=== PATIENT | male | born 1950 | race Caucasian/White ===

== ENCOUNTER 2017-02-18 14:30 | Outpatient (CLI) | payer BC ==
--- NOTE | 2017-02-18 16:29 | XRAY Report ---
DATE OF SERVICE: 02/18/2017 TWO VIEW CHEST: 02/18/2017 CLINICAL INDICATION: Cough, fever, tobacco history. FINDINGS: Frontal and lateral views of the chest demonstrate a normal cardiac silhouette. The lungs are clear. No effusion or pneumothorax is present. Postoperative changes are noted in the lower cervical spine. IMPRESSION: NO EVIDENCE OF ACUTE CARDIOPULMONARY DISEASE. TD: 02/18/2017 17:28
== END 2017-02-18 14:31 | disposition home or self-care (01) ==
LOC: DI 14:30
PROVIDERS: ATTEND Physician Assistant
DX: R05 Cough (principal); Z87.891 Personal history of nicotine dependence
CPT/HCPCS: 71046

== ENCOUNTER 2018-02-17 10:09 | Outpatient (CLI) | payer BC ==
--- NOTE | 2018-02-17 16:16 | Ultrasound Report ---
Reason: ELEVATED LIVER ENZYMES Procedure Date: 02/17/2018 Accession Number: [id number] / [id number] Procedure: US - Abdomen Limited CPT Code: FULL RESULT: EXAM: FOCUSED RIGHT UPPER QUADRANT ULTRASOUND OF THE LIVER ONLY. EXAM DATE: 02/17/2018 11:48 AM. CLINICAL HISTORY: Elevated liver enzymes. COMPARISON: None. TECHNIQUE: Real-time scanning was performed with static images obtained. FINDINGS: Liver: There is increased parenchymal echogenicity and heterogeneity with focal sparing around the gallbladder fossa, consistent with steatosis with focal fatty sparing. Right lobe of the liver measures at least 18.5 cm. Main portal vein flow: Hepatopetal. Gallbladder: The visualized portions of the gallbladder appear unremarkable, no dedicated evaluation was performed. Biliary System: CBD measures 4 mm. No intrahepatic or extrahepatic ductal dilatation is seen. Other: None. IMPRESSION: Hepatic steatosis. RADIA
== END 2018-02-17 10:10 | disposition home or self-care (01) ==
LOC: DI 10:09
PROVIDERS: ATTEND Family Medicine
DX: K76.0 Fatty (change of) liver, not elsewhere classified (principal)
CPT/HCPCS: 76705

== ENCOUNTER 2021-04-23 12:39 | Outpatient (CLI) | payer BC ==
--- NOTE | 2021-04-23 17:36 | XRAY Report ---
PROCEDURE: Tib/Fib LT INDICATIONS: BLOW TO L LOWER LEG TECHNIQUE: 2 views of the tibia and fibula were acquired. COMPARISON: None FINDINGS: Bones: There is appearance of a distal fibular cortical irregularity at the level of the tibiotalar j oint space. However, this is not well seen on all views. In addition, small lucency is noted at the f ibular tip, again not well seen on all views. No suspicious bony lesions. Soft tissues: No suspicious soft tissue calcifications or masses. IMPRESSION: Questionable lateral malleoli or fracture, not well evaluated on current exam. Further evaluation wit h dedicated ankle views are recommended. Reviewed by: Kira Del Rosario MD on 04/23/2021 5:35 PM PDT Approved by: Kira Del Rosario MD on 04/23/2021 5:35 PM PDT Station ID: [id number]
== END 2021-04-23 23:59 | disposition home or self-care (01) ==
LOC: DI.N 12:39
PROVIDERS: ATTEND Physician Assistant Medical
DX: S89.92XA Unspecified injury of left lower leg, initial encounter (principal)

== ENCOUNTER 2021-04-24 12:55 | Outpatient (CLI) | payer BC ==
--- NOTE | 2021-04-24 13:51 | XRAY Report ---
PROCEDURE: Ankle 3 View LT INDICATIONS: ABNORMAL L ANKLE JOINT TECHNIQUE: 3 views of the ankle were acquired. COMPARISON: Reference is made to the left tib-fib radiograph dated April 23, 2021. FINDINGS: BONES: No acute, displaced fracture or dislocation. The ankle mortise is maintained on these nonstre ssed views. Small ossific lesion distal to the medial malleolus, compatible remote traumatic injury. Calcaneal enthesophytes are noted. SOFT TISSUES: Diffuse edema. IMPRESSION: 1.No acute osseous abnormality. If clinical concern remains for fracture, consider CT or MR imaging. Reviewed by: Daniel Davalos MD on 04/24/2021 1:49 PM PDT Approved by: Daniel Davalos MD on 04/24/2021 1:49 PM PDT Station ID: [id number]
== END 2021-04-24 12:56 | disposition home or self-care (01) ==
LOC: DI.N 12:55
PROVIDERS: ATTEND Family Medicine
DX: R93.6 Abnormal findings on diagnostic imaging of limbs (principal)

== ENCOUNTER 2021-12-18 11:42 | Outpatient (CLI) | payer BC ==
--- NOTE | 2021-12-18 16:56 | XRAY Report ---
PROCEDURE: Chest 2 View X-Ray INDICATIONS: BRONCHITIS TECHNIQUE: 2 view chest. COMPARISON: Chest x-ray, 02/18/2017. FINDINGS: Surgical changes and devices: Lower cervical spine fusion. Lungs and pleura: No pleural effusions or pneumothorax. Mild bilateral interstitial prominence. No f ocal consolidation. Mediastinum: Mediastinal contours are normal. Heart size is normal. Tortuous aorta. Bones and chest wall: No suspicious bony abnormalities. Soft tissues appear unremarkable. IMPRESSION: No acute cardiopulmonary disease. Reviewed by: Jaison Peter MD on 12/18/2021 4:55 PM PST Approved by: Jaison Peter MD on 12/18/2021 4:55 PM PST Station ID: [id number]
== END 2021-12-18 11:43 | disposition home or self-care (01) ==
LOC: DI.N 11:42
PROVIDERS: ATTEND Family Medicine
DX: J20.9 Acute bronchitis, unspecified (principal)

== ENCOUNTER 2023-10-02 09:34 | Outpatient (CLI) | payer BC ==
[2023-10-02 12:10] LABS: BASOPHILS # (AUTO) 0.1 10^3/uL (0.0-0.1); BASOPHILS % (AUTO) 0.7 %; EOSINOPHILS # (AUTO) 0.7 10^3/uL (0.0-0.7); HCT - HEMATOCRIT 42.2 % (42.0-52.0); HGB - HEMOGLOBIN 13.8 g/dL (14.0-18.0); LYMPHOCYTES # (AUTO) 1.5 10^3/uL (1.5-3.5); LYMPHOCYTES % (AUTO) 20.8 %; MEAN CORPUSCULAR HEMOGLOBIN 27.5 pg (27.0-31.0); MEAN CORPUSCULAR HGB CONC 32.7 g/dL (32.0-36.0); MEAN CORPUSCULAR VOLUME 84.1 fL (80.0-94.0); MEAN PLATELET VOLUME 11.8 fL (7.4-11.4); MONOCYTES # (AUTO) 0.6 10^3/uL (0.0-1.0); MONOCYTES % (AUTO) 8.7 %; NEUTROPHILS # (AUTO) 4.4 10^3/uL (1.5-6.6); NEUTROPHILS % (AUTO) 59.5 %; PLT - PLATELET COUNT 241 10^3/uL (130-450); RED BLOOD COUNT 5.02 10^6/uL (4.70-6.10); RED CELL DISTRIBUTION WIDTH 14.2 % (12.0-15.0); WHITE BLOOD COUNT 7.4 x10^3/uL (4.8-10.8)
[2023-10-02 12:40] LABS: % IRON SATURATION 21 % (20-50); ALBUMIN/GLOBULIN RATIO 1.4 (1.0-2.2); ALKALINE PHOSPHATASE 72 IU/L (42-121); ALT ALANINE AMINOTRANSFERASE 34 IU/L (10-60); AST ASPARTATE AMINOTRANSFERASE 26 IU/L (10-42); BILIRUBIN,TOTAL 0.5 mg/dL (0.2-1.0); BUN - BLOOD UREA NITROGEN 20 mg/dL (6-20); CALCIUM 9.5 mg/dL (8.5-10.3); CARBON DIOXIDE - CO2 28 mmol/L (21-32); CHLORIDE 104 mmol/L (101-111); CHOL/HDL RATIO 3.9 (<5.0); CHOLESTEROL 155 mg/dL; CREATININE 0.8 mg/dL (0.6-1.3); GFR - MDRD 95 (>89); GLUCOSE 124 mg/dL (74-104); HDL CHOLESTEROL 40 mg/dL; IRON 73 ug/dL (50-212); LDL CHOLESTEROL,CALCULATED 67 mg/dL; LDL/HDL RATIO 1.7 (<3.6); POTASSIUM 3.6 mmol/L (3.5-4.5); SODIUM 140 mmol/L (135-145); TOTAL IRON BINDING CAPACITY 342 ug/dL (250-450); TOTAL PROTEIN 6.9 g/dL (6.4-8.9); TRANSFERRIN 244 mg/dL (203-362); TRIGLYCERIDES 239 mg/dL; VLDL CHOLESTEROL 48 mg/dL
[2023-10-02 12:46] LABS: THYROID STIMULATING HORMONE 2.83 uIU/mL (0.34-5.60)
[2023-10-02 12:50] LABS: FERRITIN 29.5 ng/mL (23.9-336.2)
== END 2023-10-02 09:35 | disposition home or self-care (01) ==
LOC: LAB.N 09:34
PROVIDERS: ATTEND Family Medicine
DX: E11.42 Type 2 diabetes mellitus with diabetic polyneuropathy (principal); M19.90 Unspecified osteoarthritis, unspecified site; Q23.1 Congenital insufficiency of aortic valve; R74.8 Abnormal levels of other serum enzymes; D50.9 Iron deficiency anemia, unspecified; K21.9 Gastro-esophageal reflux disease without esophagitis; Z12.5 Encounter for screening for malignant neoplasm of prostate
CPT/HCPCS: 36415; 80053; 80061; 82728; 83540; 83721; 84153; 84443; 84466; 85025